=== PATIENT | male | born 1950 | race Caucasian/White ===

== ENCOUNTER 2018-08-08 22:56 | Emergency (ER) | payer MEDICARE ==
[2018-08-08 23:11] VITALS: BP 119/77
--- NOTE | 2018-08-08 23:25 | ED Physician Documentation ---
PD HPI URI - Stated complaint Stated Complaint: SOA/SINUS/WET COUGH - Chief complaint Chief Complaint: Resp - History obtained from History obtained from: Patient - History of Present Illness Timing - onset: Today Timing details: Gradual onset Associated symptoms: Chills, Productive cough. No: Fever, Sweats Similar symptoms before: Diagnosis (similar to previous episodes of aspiration which have sometimes resulted in aspiration pneumonia) Recently seen: Not recently seen - Additional information Additional information: visiting from [place]. He is NPO due to h/o throat CA with radiation; has PEG tube. He c/o productive cough and "rattle in my upper chest" since earlier today. He says this is c/w previous episodes of aspiration which have sometimes resulted in pneumonia. Review of Systems Constitutional: reports: Chills, Other (unknown if fever: did not have working thermometer). denies: Sweats Cardiac: reports: Reviewed and negative Respiratory: reports: Dyspnea, Cough. denies: Hemoptysis, Wheezing Musculoskeletal: denies: Extremity swelling PD PAST MEDICAL HISTORY - Past Medical History Past Medical History: Yes Other Past Medical History: throat CA, hypothyroidism - Past Surgical History Other past surgical history: PEG tube - Present Medications Home Medications: Ambulatory Orders Medication Instructions Recorded Confirmed Albuterol Sulf [Ventolin Hfa 1 - 2 puffs INH Q4HR PRN #1 inhaler 08/09/18 Inhaler] Clindamycin HCl [Clindamycin 300MG 300 mg PO Q6H #28 capsule 08/09/18 CAP] - Allergies Allergies/Adverse Reactions: Allergies Allergy/AdvReac Type Severity Reaction Status Date / Time No Known Drug Allergies Allergy Verified 08/08/18 23:10 PD ED PE NORMAL - Vitals Vital signs reviewed: Yes - General General: Alert and oriented X 3, No acute distress, Well developed/nourished - Cardiac Cardiac: RRR, No murmur - Respiratory Respiratory: No respiratory distress, Other (course BS bilaterally, bilateral upper lung field crackles) Results - Vitals Vitals: Oxygen O2 Source Room air - Rads (name of study) chest xray Radiology: Prelim report reviewed, See rad report PD MEDICAL DECISION MAKING - ED course Complexity details: reviewed results, re-evaluated patient, considered differential, d/w patient Departure - Departure Disposition: 01 Home, Self Care Clinical Impression: Aspiration into respiratory tract Qualifiers: Encounter type: initial encounter Qualified Code(s): T17.908A - Unspecified foreign body in respiratory tract, part unspecified causing other injury, initi al encounter Condition: Good Instructions: ED Upper Resp Infec Abx Tx Prescriptions: Albuterol Sulf [Ventolin Hfa Inhaler] 1 - 2 puffs INH Q4HR PRN #1 inhaler PRN Reason: Shortness Of Air/Wheezing Clindamycin HCl [Clindamycin 300MG CAP] 300 mg PO Q6H #28 capsule Discharge Date/Time: 08/09/18 00:49
--- NOTE | 2018-08-09 00:11 | XRAY Report ---
Reason: cough, dyspnea Procedure Date: 08/08/2018 Accession Number: [id number] / [id number] Procedure: XR - Chest 2 View X-Ray CPT Code: 24699 FULL RESULT: EXAM: CHEST RADIOGRAPHY EXAM DATE: 08/08/2018 11:58 PM. CLINICAL HISTORY: Cough, dyspnea. COMPARISON: None. TECHNIQUE: 2 views. FINDINGS: Lungs/Pleura: Chronic upper lobe fibrotic changes, with bilateral superior hilar retraction. No focal infiltrate, effusion, or pneumothorax. Pleural calcifications. Mediastinum: Heart and mediastinal contours are unremarkable. Other: None. IMPRESSION: Chronic upper lobe fibrotic changes, with superior hilar retraction bilaterally. RADIA
== END 2018-08-09 00:49 | disposition home or self-care (01) ==
LOC: ED 22:56
DX: T17.908A Unspecified foreign body in respiratory tract, part unspecified causing other injury, initial encounter (principal); Z85.818 Personal history of malignant neoplasm of other sites of lip, oral cavity, and pharynx; Z93.1 Gastrostomy status
CPT/HCPCS: 71046; 99283

== ENCOUNTER 2018-08-10 19:34 | Emergency (ER) | payer MEDICARE ==
[2018-08-10] MEDS ORDERED: IPRATROPIUM/ALBUTEROL 3 ML NEB INH STA (19:45)
[2018-08-10] MEDS ORDERED: methylPREDNISolone SUCCINATE 125 MG/2 ML VIAL IVP STA (19:48)
--- NOTE | 2018-08-10 19:48 | ED Physician Documentation ---
PD HPI DYSPNEA - Stated complaint Stated Complaint: SOA - Chief complaint Chief Complaint: Resp - History obtained from History obtained from: Patient - History of Present Illness Timing - onset: Other (67-year-old gentleman with history of throat cancer who is completely PEG fed due to history of aspiration also has very mild COPD presents with wet cough improved struggling to breathe today. He was seen here couple of days ago and his chest x-ray was without acute illness. He was placed on clindamycin but he continues to worsen. He denies fevers.) Review of Systems Ten Systems: 10 systems reviewed and negative Constitutional: denies: Fever, Chills Nose: denies: Rhinorrhea / runny nose, Congestion Throat: denies: Sore throat Cardiac: denies: Chest pain / pressure, Palpitations Respiratory: reports: Dyspnea, Cough PD PAST MEDICAL HISTORY - Past Medical History Cardiovascular: None Respiratory: None Neuro: None Endocrine/Autoimmune: None GI: None : None HEENT: Other Psych: None Musculoskeletal: None Derm: None - Past Surgical History Past Surgical History: Yes General: Other Neuro: Other - Present Medications Home Medications: Ambulatory Orders Medication Instructions Recorded Confirmed Albuterol Sulf [Ventolin Hfa 1 - 2 puffs INH Q4HR PRN #1 inhaler 08/09/18 Inhaler] Clindamycin HCl [Clindamycin 300MG 300 mg PO Q6H #28 capsule 08/09/18 CAP] - Allergies Allergies/Adverse Reactions: Allergies Allergy/AdvReac Type Severity Reaction Status Date / Time No Known Drug Allergies Allergy Verified 08/10/18 20:08 - Social History Does the pt smoke?: No Smoking Status: Never smoker Does the pt drink ETOH?: No Does the pt have substance abuse?: No - Immunizations Immunizations are current?: Yes - POLST Patient has POLST: No PD ED PE NORMAL - Vitals Vital signs reviewed: Yes - General General: Alert and oriented X 3, No acute distress - HEENT HEENT: PERRL, EOMI - Neck Neck: Supple, no meningeal sign, No bony TTP - Cardiac Cardiac: Other (Tachycardic but regular without murmur) - Respiratory Respiratory: Other (Moderately labored with wet sounds throughout and rhonchi) - Abdomen Abdomen: Non tender (PEG tube left upper quadrant) - Back Back: No CVA TTP, No spinal TTP - Derm Derm: Normal color, Warm and dry - Extremities Extremities: No edema, No calf tenderness / cord - Neuro Neuro: Alert and oriented X 3, Normal speech Results - Vitals Vitals: Vital Signs - 24 hr 08/10/18 08/10/18 08/10/18 19:37 19:44 20:00 Temperature 36.9 C Heart Rate 120 H 122 H 114 H Respiratory 38 H 29 H Rate Blood Pressure 150/57 H 150/57 H O2 Saturation 60 L 44 L 100 08/10/18 08/10/18 08/10/18 20:05 20:12 20:27 Temperature Heart Rate 123 H 125 H 123 H Respiratory 39 H 34 H 35 H Rate Blood Pressure 157/81 H 126/96 H O2 Saturation 95 97 08/10/18 08/10/18 08/10/18 20:35 20:51 21:00 Temperature Heart Rate 123 H 39 L 121 H Respiratory 38 H 37 H Rate Blood Pressure 144/89 H 134/76 H O2 Saturation 98 95 08/10/18 08/10/18 08/10/18 21:30 22:00 22:02 Temperature Heart Rate 124 H 105 H 104 H Respiratory 32 H 24 Rate Blood Pressure 141/83 H 126/63 O2 Saturation 100 97 08/10/18 22:29 Temperature Heart Rate 101 H Respiratory 17 Rate Blood Pressure 103/63 O2 Saturation 91 L Oxygen O2 Source Mechanical ventilator Oxygen Flow Rate 15 - EKG (time done) 1946 Rate: Rate (enter#) (123) Rhythm: Sinus tachycardia Prosperity: RAD Intervals: Normal AK QRS: Normal Ischemia: Non specific changes Computer interpretation: Agree with computer - Labs Labs: Laboratory Tests 08/10/18 08/10/18 08/10/18 20:00 20:00 20:00 WBC 13.7 H RBC 4.58 L Hgb 13.6 L Hct 41.8 L MCV 91.3 MCH 29.7 MCHC 32.5 RDW 13.2 Plt Count 209 MPV 8.1 Neut # (Auto) 11.1 H Lymph # (Auto) 1.6 [place] # (Auto) 0.9 Eos # (Auto) 0.0 Baso # (Auto) 0.0 Absolute Nucleated RBC 0.01 Nucleated RBC % 0.0 PT 13.7 H INR 1.2 D-Dimer Bld Gas Analysis Time Sample Site ABG pH ABG pCO2 ABG pO2 ABG HCO3 ABG Total CO2 ABG O2 Saturation ABG Base Excess Rick Test VBG pH VBG pCO2 VBG pO2 VBG HCO3 VBG Total CO2 VBG O2 Saturation VBG Base Excess Respiration Rate O2 Delivery Device Vent Mode Tidal Volume PEEP Pressure Support Vent Sodium 137 Potassium 3.7 Chloride 97 L Carbon Dioxide 26 Anion Gap 14.0 H BUN 22 H Creatinine 0.8 Estimated GFR (MDRD) 97 Glucose 128 H Lactic Acid Calcium 8.9 Total Bilirubin 0.7 AST 90 H ALT 60 Alkaline Phosphatase 114 Troponin I B-Natriuretic Peptide Total Protein 8.2 Albumin 4.2 Globulin 4.0 Albumin/Globulin Ratio 1.1 Lipase 43 Influenza A (Rapid) Influenza B (Rapid) 08/10/18 08/10/18 08/10/18 20:00 20:00 20:00 WBC RBC Hgb Hct MCV MCH MCHC RDW Plt Count MPV Neut # (Auto) Lymph # (Auto) [place] # (Auto) Eos # (Auto) Baso # (Auto) Absolute Nucleated RBC Nucleated RBC % PT INR D-Dimer Bld Gas Analysis Time Sample Site ABG pH ABG pCO2 ABG pO2 ABG HCO3 ABG Total CO2 ABG O2 Saturation ABG Base Excess Rick Test VBG pH VBG pCO2 VBG pO2 VBG HCO3 VBG Total CO2 VBG O2 Saturation VBG Base Excess Respiration Rate O2 Delivery Device Vent Mode Tidal Volume PEEP Pressure Support Vent Sodium Potassium Chloride Carbon Dioxide Anion Gap BUN Creatinine Estimated GFR (MDRD) Glucose Lactic Acid 3.3 H* Calcium Total Bilirubin AST ALT Alkaline Phosphatase Troponin I < 0.04 B-Natriuretic Peptide 94 Total Protein Albumin Globulin Albumin/Globulin Ratio Lipase Influenza A (Rapid) Influenza B (Rapid) 08/10/18 08/10/18 08/10/18 20:00 20:00 22:05 WBC RBC Hgb Hct MCV MCH MCHC RDW Plt Count MPV Neut # (Auto) Lymph # (Auto) [place] # (Auto) Eos # (Auto) Baso # (Auto) Absolute Nucleated RBC Nucleated RBC % PT INR D-Dimer 224.8 Bld Gas Analysis Time Sample Site ABG pH ABG pCO2 ABG pO2 ABG HCO3 ABG Total CO2 ABG O2 Saturation ABG Base Excess Rick Test VBG pH 7.257 L VBG pCO2 58.1 H VBG pO2 47.5 H VBG HCO3 25.3 VBG Total CO2 27.1 VBG O2 Saturation 79.9 VBG Base Excess -2.9 L Respiration Rate O2 Delivery Device Vent Mode Tidal Volume PEEP Pressure Support Vent Sodium Potassium Chloride Carbon Dioxide Anion Gap BUN Creatinine Estimated GFR (MDRD) Glucose Lactic Acid Calcium Total Bilirubin AST ALT Alkaline Phosphatase Troponin I B-Natriuretic Peptide Total Protein Albumin Globulin Albumin/Globulin Ratio Lipase Influenza A (Rapid) Negative Influenza B (Rapid) Negative 08/10/18 22:22 WBC RBC Hgb Hct MCV MCH MCHC RDW Plt Count MPV Neut # (Auto) Lymph # (Auto) [place] # (Auto) Eos # (Auto) Baso # (Auto) Absolute Nucleated RBC Nucleated RBC % PT INR D-Dimer Bld Gas Analysis Time 2227 Sample Site RIGHT RADIAL ABG pH 7.11 L* ABG pCO2 84 H* ABG pO2 55 L* ABG HCO3 26.1 H ABG Total CO2 28.7 ABG O2 Saturation 79 L* ABG Base Excess -5.3 L Rick Test POSITIVE VBG pH VBG pCO2 VBG pO2 VBG HCO3 VBG Total CO2 VBG O2 Saturation VBG Base Excess Respiration Rate 18 O2 Delivery Device VENTILATOR Vent Mode SIMV Tidal Volume 266 PEEP 5 Pressure Support Vent 5 Sodium Potassium Chloride Carbon Dioxide Anion Gap BUN Creatinine Estimated GFR (MDRD) Glucose Lactic Acid Calcium Total Bilirubin AST ALT Alkaline Phosphatase Troponin I B-Natriuretic Peptide Total Protein Albumin Globulin Albumin/Globulin Ratio Lipase Influenza A (Rapid) Influenza B (Rapid) - Rads (name of study) 1v chest Radiology: EMP read contemporaneously (Increase in bibasilar interstitial prominence consistent with potential inflammation or edema and advanced upper lobe pulmonary foot arthrosis and hilar retraction) 1v chest post intubation Radiology: EMP read contemporaneously (Tip of ETT 6cm above maryann) Procedures - Intubation Provider: Emergency physician Medications: Etomidate (20mg ivp), Succinylcholine (200mg ivp) Blade: Other (First tried with a Britany 4 but even after paralytic I was unable to open his mouth more than about 1.5-2cm between the incisors. And so the glide scope was used.) Tube: Size-enter number (7.0), Cuffed Route: Oral Confirmation: Direct visualization (with glidescope), Bilateral breath sounds, No abdominal breath sound Complications: No compications PD MEDICAL DECISION MAKING - ED course ED course: This is a 67-year-old gentleman who is visiting from [place] who has a history of aspiration and has a PEG tube For same who presents with significant hypoxemia and respiratory distress. There is no evidence of pneumonia on chest x-ray, labs are inconsistent with pulmonary embolism. He had modest relief with breathing treatments and supplemental oxygen and was placed on BiPAP and was starting to feel better. Case discussed with the admitting telephone collector here, Dr. Greenwood who felt he would be better served at a facility with pulmonary backup and [facility] was called for discussion at 8:45 PM. He received IV steroids and broad-spectrum antibiotics including Zosyn, Levaquin, and vancomycin after blood cultures. He started to wear out on the BiPAP and become more anxious and the decision was made to intubate him. The intubation was technically easy with the exception of the fact that I guess because of his prior throat surgery the distance between his teeth was pretty small even after paralytics and required glide scope. [facility] called back and they were unable to accept him because their ICU was full. [facility] was called. The brother was here briefly and I discussed the case with him and told him that he would have to be transferred off the [place] which he agreed to. The patient also agreed to this prior to intubation. The brother left after that and I could not reach him by phone. Spoke with Pulm/ICU MD, Jhonny Burgess at [facility], He tells me they are also tight on beds and would like us to try other facilities first. Spoke with Dr. Issac Platt at [facility] who accepts in transfer. I was able to reach the patient's brother by phone at [phone] who is agreeable. [place] were completed. - Critical Care Time(min): 80 Time Includes: Direct patient care, Review records, Reassess patient, Document care, Coordinate care, Medical consult, Family consult for tx dec Data interpretation: Labs, Pulse ox, CXR Procedures included in critical care time: Peripheral IV Procedures excluded from critical care time: Intubation, EKG Departure - Departure Disposition: 02 Transfer Acute Care Hosp Clinical Impression: Respiratory failure Condition: Critical
[2018-08-10 20:11] LABS: VBG PH 7.257 (7.31-7.41)
[2018-08-10 20:12] LABS: VBG BASE EXCESS -2.9 mmol/L (-2 - +2); VBG PCO2 58.1 mmHg (41-51); VBG PO2 47.5 mmHg (25-47); VBG TOTAL CO2 27.1 mmol/L (24-29)
[2018-08-10 20:13] LABS: BASOPHILS % (AUTO) 0.3 %; EOSINOPHILS % (AUTO) 0.1 %; HGB - HEMOGLOBIN 13.6 g/dL (14.0-18.0); LYMPHOCYTES # (AUTO) 1.6 10^3/uL (1.5-3.5); LYMPHOCYTES % (AUTO) 11.8 %; MEAN CORPUSCULAR HEMOGLOBIN 29.7 pg (27.0-31.0); MEAN CORPUSCULAR HGB CONC 32.5 g/dL (32.0-36.0); MEAN CORPUSCULAR VOLUME 91.3 fL (80.0-94.0); MEAN PLATELET VOLUME 8.1 fL (7.4-11.4); MONOCYTES # (AUTO) 0.9 10^3/uL (0.0-1.0); MONOCYTES % (AUTO) 6.3 %; NEUTROPHILS # (AUTO) 11.1 10^3/uL (1.5-6.6); NEUTROPHILS % (AUTO) 81.5 %; PLT - PLATELET COUNT 209 10^3/uL (130-450); RED BLOOD COUNT 4.58 10^6/uL (4.70-6.10); RED CELL DISTRIBUTION WIDTH 13.2 % (12.0-15.0); WHITE BLOOD COUNT 13.7 x10^3/uL (4.8-10.8)
[2018-08-10] MEDS ORDERED: ALBUTEROL NEB 2.5 MG/3 ML INH STA (20:15)
[2018-08-10 20:22] LABS: ALBUMIN 4.2 g/dL (3.2-5.5); ALBUMIN/GLOBULIN RATIO 1.1 (1.0-2.2); BILIRUBIN,TOTAL 0.7 mg/dL (0.2-1.0); CALCIUM 8.9 mg/dL (8.5-10.3); CREATININE 0.8 mg/dL (0.6-1.2); INR 1.2 (0.8-1.2); PT - PROTHROMBIN TIME 13.7 secs (9.9-12.6); TOTAL PROTEIN 8.2 g/dL (6.7-8.2)
[2018-08-10] MEDS ORDERED: SODIUM CHLORIDE 0.9% 1,000 ML IV ONE ×2 (20:28→21:49)
[2018-08-10] MEDS ORDERED: VANCOMYCIN INJ 1.5 GM in SODIUM CHLORIDE 0.9% 500 ML IV STA (20:28)
[2018-08-10] MEDS ORDERED: PIPERACILLIN/TAZOBACTAM 4.5 GM in SODIUM CHLORIDE 0.9% MINIBAG 100 ML IV STA (20:28)
[2018-08-10] MEDS ORDERED: levoFLOXacin 750 MG/150 ML 750 MG/150 ML BAG IV ONE (20:28)
--- NOTE | 2018-08-10 20:41 | XRAY Report ---
Reason: cough, hypoxemia Procedure Date: 08/10/2018 Accession Number: [id number] / [id number] Procedure: XR - Chest 1 View X-Ray CPT Code: 35460 FULL RESULT: EXAM: CHEST RADIOGRAPHY EXAM DATE: 08/10/2018 08:21 PM. CLINICAL HISTORY: Cough, hypoxemia. COMPARISON: CHEST 2 VIEW 08/08/2018 11:49 PM. TECHNIQUE: 1 view. FINDINGS: Lungs/Pleura: There are findings of symmetric pulmonary fibrosis. There are bandlike opacities in the upper lung zones. There is superior retraction of the hilum with features of progressive massive fibrosis. Since previous exam, there has been increased interstitial density at the lung bases. Mediastinum: Heart size is normal. Liza appear enlarged. Other: None. IMPRESSION: 1. Acute increase in basilar interstitial prominence, question early inflammation or edema. 2. Advanced upper lobe pulmonary fibrosis and hilar retraction. Features of advanced granulomatous disease/sarcoid or progressive massive fibrosis RADIA
[2018-08-10] MEDS ORDERED: ETOMIDATE 40 MG/20 ML VIAL IVP ONE (21:02)
[2018-08-10] MEDS ORDERED: PROPOFOL 1000 MG/100 ML 100 ML IV ONE (21:03)
[2018-08-10] MEDS ORDERED: SUCCINYLCHOLINE 200 MG/10 ML VIAL ONE (21:03)
[2018-08-10] MEDS ORDERED: ETOMIDATE 40 MG/20 ML VIAL IVP STA (21:20)
[2018-08-10] MEDS ORDERED: PROPOFOL 1000 MG/100 ML 100 ML IV STA (21:20)
[2018-08-10] MEDS ORDERED: SUCCINYLCHOLINE 200 MG/10 ML VIAL IVP STA (21:20)
[2018-08-10] MEDS ORDERED: fentaNYL 100 MCG/2 ML VIAL IVP STA ×2 (21:39→22:08)
[2018-08-10] MEDS ORDERED: fentaNYL 100 MCG/2 ML VIAL ONE (21:41)
[2018-08-10] MEDS ORDERED: LACTATED RINGERS 1,000 ML IV STA (21:49)
[2018-08-10] MEDS ORDERED: fentaNYL 2,500 MCG in SODIUM CHLORIDE 0.9% 200 ML IV STA (22:08)
--- NOTE | 2018-08-10 22:19 | XRAY Report ---
Reason: post intubation Procedure Date: 08/10/2018 Accession Number: [id number] / [id number] Procedure: XR - Chest 1 View X-Ray CPT Code: 54362 FULL RESULT: EXAM: CHEST RADIOGRAPHY EXAM DATE: 08/10/2018 09:49 PM. CLINICAL HISTORY: Post intubation. COMPARISON: 08/10/2018 chest x-ray. TECHNIQUE: 1 view. FINDINGS: Lungs/Pleura: Diffuse interstitial opacities consistent with chronic lung disease versus mild edema. There is hilar traction and chronic appearing fibrosis at the right apex. Mediastinum: Within exam limitations, the cardiomediastinal contour is normal. Other: Tip of endotracheal tube 6 cm above the maryann. IMPRESSION: 1. Tip of endotracheal tube position 6 cm above the maryann. 2. Evidence of chronic lung disease, superimposed interstitial edema not excluded. RADIA
[2018-08-10 22:34] LABS: ABG BASE EXCESS -5.3 mmol/L (-2.0-3.0); ABG HCO3 26.1 mmol/L (22.0-26.0); ABG TCO2 28.7 MMOL/L (21.0-29.0); ALLEN TEST POSITIVE
[2018-08-10 22:37] LABS: ABG PH 7.11 (7.35-7.45)
[2018-08-10 22:38] LABS: ABG PCO2 84 mmHg (34-45); ABG PO2 55 mmHg (80-100)
[2018-08-10 22:40] LABS: ABG OXYGEN SATURATION 79 % (94-98)
[2018-08-10 23:41] VITALS: BP 120/73
[2018-08-11 00:33] LABS: ABG BASE EXCESS -6.8 mmol/L (-2.0-3.0); ABG HCO3 22.4 mmol/L (22.0-26.0); ABG OXYGEN SATURATION 97 % (94-98); ABG PO2 113 mmHg (80-100); ABG TCO2 24.3 MMOL/L (21.0-29.0); ALLEN TEST POSITIVE
[2018-08-11 00:35] LABS: ABG PCO2 61 mmHg (34-45); ABG PH 7.18 (7.35-7.45)
== END 2018-08-11 00:28 | disposition short-term general hospital (02) ==
LOC: ED 19:34
DX: J96.91 Respiratory failure, unspecified with hypoxia (principal); J44.9 Chronic obstructive pulmonary disease, unspecified; Z85.818 Personal history of malignant neoplasm of other sites of lip, oral cavity, and pharynx; Z93.1 Gastrostomy status
CPT/HCPCS: 31500; 36415; 36600; 51703; 71045; 80053; 82803; 83605; 83690; 83880; 84484; 85025; 85379; 85610; 87040; 87275; 87276; 93005; 94002; 94640; 94660; 96365; 96367; 96368; 96375; 99291; 99292; J0330; J3010; J3370; J7120; 99285